=== PATIENT | female | born 1975 | race Caucasian/White ===

== ENCOUNTER 2020-12-31 | Outpatient (REF) | payer OTHER, SELFPAY | END 2020-12-31 00:01 | disposition home or self-care (01) | LOC: HO.LNP | PROVIDERS: Visit Provider Physician Assistant | DX: Z20.822 Contact with and (suspected) exposure to COVID-19 (principal); R05 Cough | CPT/HCPCS: U0003; U0005 ==

== ENCOUNTER 2022-11-20 10:53 | Outpatient (AMB) | payer OTHER, SELFPAY ==
--- NOTE | 2022-11-20 11:11 | AM.OFFWIN_ITS ---
Intake Vital Signs 11/20/22 11:17 Height 5 ft 2 in BP 112/74 Blood Pressure Location Lt brachial Position Sitting Pulse 94 Pulse Source Pulse Oximeter Temp 96.8 F Temp Source Temporal Artery Scan Pulse Oximetry (%) 100 Oxygen Delivery Method Room Air Intake Visit Reasons: [employer], Rash in back of neck, itchy Intake Note: Pt is here c/o rash on the back of her neck. Pt states she was given celecoxib when this rash occurred. Pt states she is not in pain. Pt is requesting a work note for today and tomorrow. Patient Tobacco Use Status: Never used Tobacco Allergies kiwi Allergy (Mild, Verified 11/20/22 11:16) mild oxycodone [From Percocet] Allergy (Mild, Verified 11/20/22 11:16) mild Do you need a note to return to daycare/school/sports/work: Yes HPI HPI Comments History of Present Illness Details 47-year-old female that presents for rash. Patient states she was seen evaluated by orthopedic doctor in prescribed celecoxib for arthritis. She took the medication in next day program at a rash around her neck upper back part of her thigh. The rash is itchy. She denies fevers chills or shortness of breath. PFSH Social History Patient Tobacco Use Status: Never used Tobacco Review of Systems Const All systems reviewed & are unremarkable except as noted in HPI and below Denies fever(s), Denies headache(s) and Denies weakness Eyes Reports no additional complaints ENT Reports no additional complaints and Denies headache(s) Card Reports no additional complaints, Denies chest pain, Denies leg edema and Denies dyspnea Resp Denies cough and Denies dyspnea GI Denies abdominal pain, Denies nausea and Denies vomiting Denies urinary frequency and Denies dysuria Musc Reports no additional complaints Neuro Denies headache(s) and Denies weakness Psych Reports no additional complaints Endo Reports no additional complaints Physical Exam Vital Signs: Last Vital Signs Temp 96.8 F 11/20/22 11:17 Pulse 94 11/20/22 11:17 BP 112/74 11/20/22 11:17 Pulse Ox 100 11/20/22 11:17 Oxygen Delivery Method Room Air 11/20/22 11:17 Const General: cooperative, no acute distress and alert Orientation/consciousness: patient oriented x3 Limitations: no limitations HEENT Head: Yes normal to inspection Ears: hearing grossly normal bilaterally and external ears normal General nose exam: Normal external nose present Eyes General: appearance normal, both eyes and all related structures Neck Neck: Yes normal visual inspection Chest Chest palpation & inspection: normal inspection of the chest Resp Effort & Inspection: normal respiratory effort, able to speak in complete sentences and no audible wheezes Auscultation: clear to auscultation bilaterally Cardio Rate: regular rate Rhythm: regular rhythm GI Inspection: Yes normal to inspection Palpation (GI): Soft to palpation and nontender Skin Other: Erythema in hives present on the upper portion of the neck and upper back. General skin exam: no rashes or lesions noted Neuro General: patient oriented x3 Psych Appearance: grossly normal Mental Status: mental status grossly normal Speech and movement: Normal speech and movement present Affect: normal affect Attitude: cooperative Thought process: Normal thought process present Thought content: Normal thought content present Assessment & Plan Assessment & Plan (1) Sensitivity to nonsteroidal anti-inflammatory drug (NSAID): Code(s): Z88.6 - Allergy status to analgesic agent Plan VSS. Exam patient presents alert and oriented no acute distress exam notable for hives on the upper portion of the neck. No audible wheezing appreciated on auscultation or concern for anaphylaxis. Patient likely suffering from drug hypersensitivity rash. Will prescribe short course of steroids was promoted in in addition to patient utilizing Benadryl. Patient advise instructed to stop taking the medication Discharge instructions, follow up and treatment are discussed with patient in my usual fashion. Alternatives in treatment are also discussed. The patient will return for worsening symptoms or as needed. Advised that any labs/imaging ordered will be followed up on and contact made if further treatment needed. Counseled that patient's condition may require further evaluation and/or treatment. Symptoms of concern for worsening disorder discussed in detail in my customary manner. Patient does verbalize understanding of the plan, there are no apparent barriers to communication. The patient is given the opportunity to ask questions and have them answered to his/her satisfaction Medications: New prednisone 20 mg PO DAILY 4 days 4 tabs 0RF famotidine 20 mg PO DAILY 2 days 2 tabs 0RF Coding Level of Care Code New Pt Level 4 (00819) Diagnoses Sensitivity to nonsteroidal anti-inflammatory drug (NSAID) Z88.6
[2022-11-20 11:17] VITALS: BP 112/74; PULSE 94; TEMP 36; O2SAT 100
== END 2022-11-20 11:56 | disposition home or self-care (01) ==
PROVIDERS: Visit Provider Physician Assistant
DX: Z88.6 Allergy status to analgesic agent (principal)
CPT/HCPCS: 99204